=== PATIENT | male | born 1955 | race Caucasian/White ===

== ENCOUNTER 2017-01-10 13:18 | Emergency (ER) | payer MEDICAID ==
[2017-01-10 13:31] VITALS: PULSE 70; RESP 16
[2017-01-10] MEDS ORDERED: DEXAMETHASONE 4 MG TAB PO ONE (14:35)
--- NOTE | 2017-01-10 14:36 | EDPHY ---
H & P Stated Complaint: swelling above left clavicle. Sent by PCP. Time Seen by Provider: 01/10/17 14:26 HPI/ROS: CHIEF COMPLAINT: Swelling HISTORY OF PRESENT ILLNESS: The patient is a 61-year-old man who comes to the emergency department complaining of swelling in his supraclavicular space bilaterally. He states that he 1st noticed this last night. Was associated with some itching and a small amount of redness. Today it is resolved. He did not have any difficulty breathing or stridor. He has not had any trauma. His is concerned because her brother had non-Hodgkin's lymphoma. They called primary care's office who referred him to the emergency department. No fevers. REVIEW OF SYSTEMS: Constitutional: denies: chills, fever, recent illness, recent injury EENTM: denies: blurred vision, double vision, nose congestion Respiratory: denies: cough, shortness of breath Cardiac: denies: chest pain, irregular heart rate, lightheadedness, palpitations Gastrointestinal/Abdominal: denies: abdominal pain, diarrhea, nausea, vomiting, blood streaked stools Genitourinary: denies: dysuria, frequency, hematuria, pain Musculoskeletal: denies: joint pain, muscle pain Skin: See HPI Neurological: denies: headache, numbness, paresthesia, tingling, dizziness, weakness Hematologic/Lymphatic: denies: blood clots, easy bleeding, easy bruising Immunologic/allergic: denies: HIV/AIDS, transplant EXAM: GENERAL: Well-appearing, well-nourished and in no acute distress. HEAD: Atraumatic, normocephalic. EYES: Pupils equal round and reactive to light, extraocular movements intact, sclera anicteric, conjunctiva are normal. ENT: No stridor, no intraoral swelling, TMs normal, nares patent, oropharynx clear without exudates. Moist mucous membranes. NECK: Normal range of motion, supple without lymphadenopathy or JVD. LUNGS: Breath sounds clear to auscultation bilaterally and equal. No wheezes rales or rhonchi. HEART: Regular rate and rhythm without murmurs, rubs or gallops. ABDOMEN: Soft, nontender, normoactive bowel sounds. No guarding, no rebound. No masses appreciated. BACK: No CVA tenderness, no spinal tenderness, step-offs or deformities EXTREMITIES: Normal range of motion, no pitting or edema. No clubbing or cyanosis. NEUROLOGICAL: Cranial nerves II through XII grossly intact. Normal speech, normal gait. 5/5 strength, normal movement in all extremities, normal sensation PSYCH: Normal mood, normal affect. SKIN: Symptoms now resolved. Describe some swelling or puffiness to the skin above his clavicles bilaterally but lateral to the anterior head of the sternocleidomastoid. No palpable lymph nodes or masses. No visible urticaria. no thrill. Source: Patient Exam Limitations: No limitations - Personal History Current Tetanus Diphtheria and Acellular Pertussis (TDAP): Yes - Medical/Surgical History Hx Asthma: No Hx Chronic Respiratory Disease: No Hx Diabetes: No Hx Cardiac Disease: No Hx Renal Disease: No Hx Cirrhosis: No Hx Alcoholism: No Hx HIV/AIDS: No Hx Splenectomy or Spleen Trauma: No Other PMH: Rt total hip. PE's 2013. - Family History Significant Family History: No pertinent family hx - Social History Smoking Status: Never smoked Alcohol Use: Sober Drug Use: None Constitutional: Initial Vital Signs Temperature (C) 36.4 C 01/10/17 13:27 Heart Rate 70 01/10/17 13:27 Respiratory Rate 16 01/10/17 13:27 Blood Pressure 142/95 H 01/10/17 13:27 O2 Sat (%) 97 01/10/17 13:27 O2 Delivery Mode Room Air Allergies/Adverse Reactions: No Known Allergies Allergy (Verified 08/14/14 18:14) Medical Decision Making ED Course/Re-evaluation: The patient reports having unusual swelling above his clavicles bilaterally last night that have now resolved. Suspect an allergy. He states that he had a mild allergic reaction to dust that was very heavy when he was working on Tuesday. We discussed the possibility of lymphoma as an aneurysms etc. I think that this is very low on the differential based on its transient appearance. The patient has had a history of pulmonary emboli and we discussed this. Denies any chest pain or shortness of breath associated with this episode. Also this would be extremely unusual presentation. At this point we agreed to try treating him as an allergic reaction and following up with his primary later this week. He plans to drive back to [place] from here and I will therefore defer antihistamines until he gets home. I will treat him with a dose of Decadron. Differential Diagnosis: Partial list of the Differential diagnosis considered include but were not limited to; allergic reaction, lymphoma, angioedema, abscess and although unlikely based on the history and physical exam, I also considered aneurysm, dissection, trauma. I discussed these differential diagnoses and the plan with the patient as well as the usual and expected course. The patient understands that the diagnosis is provisional and that in medicine we are not always correct and that further workup is often warranted. Usual and customary warnings were given. All of the patient's questions were answered. The patient was instructed to return to the emergency department should the symptoms at all worsen or return, otherwise to followup with the physician as we discussed. - Data Points Medications Given: Discontinued Medications Dexamethasone (Decadron) 10 mg PO EDNOW ONE Stop: 01/10/17 14:36 Last Admin: 01/10/17 14:41 Dose: 10 mg Departure - Departure Disposition: Home, Routine, Self-Care Clinical Impression: Allergic reaction Qualifiers: Encounter type: initial encounter Qualified Code(s): T78.40XA - Allergy, unspecified, initial encounter Condition: Fair Instructions: Urticaria (ED) Additional Instructions: Take Benadryl every 6 hours as discussed or another antihistamine of your choice. Follow up with Dr. Albarran later this week as we discussed. Referrals: Gli Albarran MD [Primary Care Provider] - As per Instructions
[2017-01-10 15:19] VITALS: BP 145/97; TEMP 98.1; O2SAT 96
== END 2017-01-10 15:17 | disposition home or self-care (01) ==
DX: T78.40XA Allergy, unspecified, initial encounter (principal)

== ENCOUNTER 2017-03-04 10:52 | Day surgery (SDC) | payer MEDICAID ==
[2017-03-04] MEDS ORDERED: MIDAZOLAM 2 MG/2 ML VIAL ONE ×2 (12:04)
[2017-03-04] MEDS ORDERED: fentaNYL 100 MCG/2 ML INJ ONE (12:05)
--- NOTE | 2017-03-04 13:33 | GPN ---
[f rep st] PROCEDURE NOTE DATE OF PROCEDURE: 03/04/2017 PROCEDURE: Colonoscopy and snare biopsy. INDICATION: Multiple small tubular adenomas removed on previous colonoscopy. This is a surveillanc e colonoscopy. PREOPERATIVE DIAGNOSIS: Rule out polyps. Rule out cancer. POSTOPERATIVE DIAGNOSIS: 1. 2-3 mm ascending colon polyp removed by cold biopsy in piecemeal fashion. 2. 3 polyps in the transverse colon measuring between 2 and 4 mm. The 4 mm polyp removed in total by cold snare. The other 2 small polyps removed in total by cold biopsy in piecemeal fashion. INFORMED CONSENT: I had a detailed discussion with the patient regarding the procedure, alternative s, benefits, and risks including bleeding, perforation, infection, risk of medication. Informed con sent was signed and witnessed. COMPLICATIONS: None immediate. MEDICATIONS USED: Versed 6 mg IV, fentanyl 100 mcg IV. DESCRIPTION OF PROCEDURE: After adequate sedation, the patient remained in left lateral decubitus p osition, and I performed a visual and digital anorectal examination. The video colonoscope was then inserted via the rectum and advanced under visualization to the terminal ileum. Upon withdrawal of the instrument, careful attention was paid to mucosal detail. The prep was fair. Multiple copious washings were performed in order to get the chyme off the right colon and the remaining portion of the stool out of the remaining portion of the colon. I was able to clear the stool and get an adequ ate view of the tissue. There was a small 2-3 mm ascending colon polyp removed in total by cold bio psy in piecemeal fashion. There were 2 additional transverse colon polyps measuring about 2-3 mm re moved in total by cold biopsy in piecemeal fashion. There was a slightly larger 4 mm polyp in the t ransverse colon removed in total by cold snare. Retroflex examination was performed in the rectum. The patient tolerated the procedure well and was transferred to the recovery room in satisfactory c ondition. IMPRESSION: 4 small polyps noted as above, removed. Largest polyp was 4 mm. RECOMMENDATIONS: 1. Follow up pathology on polyp. 2. Repeat colonoscopy in 3 years. 3. High-fiber diet. 4. We can restart p.r.n. ibuprofen. 5. Follow up with Dr. Albarran as scheduled. Thank you for me to participate in this patient's health care. Do not hesitate to call me with any questions. /[id number]/MODL
== END 2017-03-04 14:10 | disposition home or self-care (01) ==
LOC: FSGY 10:52
PROVIDERS: ATTEND Internal Medicine Gastroenterology
DX: D12.2 Benign neoplasm of ascending colon (principal); D12.3 Benign neoplasm of transverse colon; Z86.010 Personal history of colon polyps; Z83.71 Family history of colonic polyps
CPT/HCPCS: J2250; J3010